=== PATIENT | male | born 1950 | race Caucasian/White ===

== ENCOUNTER 2023-07-29 11:45 | Outpatient (CLI) | payer MEDICARE | END 2023-07-29 11:46 | LOC: PET 11:45 | PROVIDERS: ATTEND Internal Medicine Hematology & Oncology | DX: C83.33 Diffuse large B-cell lymphoma, intra-abdominal lymph nodes (principal); R59.0 Localized enlarged lymph nodes; Z98.1 Arthrodesis status | CPT/HCPCS: 78815; A9552 ==

== ENCOUNTER 2023-08-14 18:00 | Inpatient (IN) | payer MEDICARE ==
[~2023-08-14 18:00] MED LIST: Iopamidol-370 76% 500 ML MDV (1 ML CHARGE) ONE
[2023-08-14] MEDS ORDERED: Ondansetron PF 4 MG/2 ML Vial ONE (18:56)
[2023-08-14 19:19] LABS: Hematocrit 28.7 % (42.0-52.0); Hemoglobin 9.3 g/dL (14.0-18.0); Mean Corpuscular HGB CONC 32.4 g/dL (32.0-36.0); Mean Corpuscular Volume 83.2 fl (78.0-98.0); Mean Platelet Volume 8.4 fL (7.4-10.4); Platelet Count 309 10x3/uL (130-400); RBC Distribution Width 14.9 % (11.5-14.5); Red Blood Cell (RBC) Count 3.45 mill/uL (4.70-6.10)
[2023-08-14 19:28] LABS: Prothrombin Time 13.3 sec (12.0-14.7)
[2023-08-14 19:29] LABS: PTT 25.2 sec (22.9-36.1)
[2023-08-14 19:37] LABS: Anisocytosis SLIGHT = 6-15 cells HPF (0-5); Band 10 % (5-11); Hypochromia SLIGHT = 6-15 cells HPF (0-5); Lymphocytes 6 % (21-51); Neutrophil 84 % (42-75); Ovalocytes SLIGHT = 2-5 cells HPF (0-1); Platelet Adequacy Comment Platelets Normal; Poikilocytosis SLIGHT = 6-15 cells HPF (0-5); Polychromasia SLIGHT = 2-3 cells HPF (0-2); Target Cells SLIGHT = 2-5 cells HPF (0-1)
[2023-08-14 19:43] LABS: ALT (SGPT) 9 U/L (8-55); AST (SGOT) 8 U/L (5-34); Albumin 3.2 g/dL (3.4-4.8); Alkaline Phosphatase 93 U/L (40-110); Anion Gap 12 mmol/L (10-20); BUN (Urea Nitrogen) 18 mg/dL (8.4-25.7); Bilirubin, Total 0.4 mg/dL (0.2-1.2); Calc. Creatinine Clearance 0 mL/min (70-130); Calcium 8.4 mg/dL (7.8-10.44); Carbon Dioxide 26 mmol/L (23-31); Chloride 105 mmol/L (98-107); Estimated GFR 97; Glucose 212 mg/dL (83-110); Potassium 3.2 mmol/L (3.5-5.1); Protein, Total 5.2 g/dL (5.8-8.1); Sodium 140 mmol/L (136-145)
[2023-08-14] MEDS ORDERED: Sodium Chloride 0.9% 100 ML ONE (20:22)
[2023-08-14] MEDS ORDERED: Cefepime 2 GM VIAL ONE (20:22)
[2023-08-14 21:20] LABS: Bacteria/HPF None Seen HPF (None Seen); Bilirubin Negative (Negative); Blood, Urine Negative (Negative); CAUTI Indications for Culture Fever or rigors; Clarity Clear (Clear); Glucose, Urine (Dipstick) >=1000 mg/dL (Negative); Ketone, Urine Negative (Negative); Leukocyte Negative Leu/uL (Negative); Nitrite Negative (Negative); Protein, Urine (Dipstick) Negative (Neg-Trace); RBC/HPF 0-3 HPF (0-3); Specific Gravity, Urine 1.014 (1.002-1.036); Squamous Epithelial None Seen HPF (0-3); Urobilinogen Normal mg/dL (Less than 2); WBC/HPF 0-3 HPF (0-3)
[2023-08-14 21:23] LABS: Urine Culture Reflex No No
[2023-08-14 21:54] LABS: Influenza A by NAA Not Detected (NotDetected); Influenza B by NAA Not Detected (NotDetected); SARS-CoV-2 NAA Rapid Test Not Detected (NotDetected)
[2023-08-14] MEDS ORDERED: HumaLOG 300 UNITS/3 ML VIAL SC PRN (23:25)
[2023-08-14] MEDS ORDERED: Acetaminophen 650 MG Suppository PR PRN (23:25)
[2023-08-14] MEDS ORDERED: Dextrose 50% Abboject 50 ML SYRINGE SLOW IVP PRN (23:25)
[2023-08-14] MEDS ORDERED: Glucagon 1 MG/ML KIT IM PRN (23:25)
[2023-08-14] MEDS ORDERED: Dextrose 5% in Water 1,000 ML IV PRN (23:25)
[2023-08-14] MEDS ORDERED: Morphine 4 MG/ML VIAL ONE (23:37)
[2023-08-15] MEDS: Vancomycin (BATCH) 2 GM in Premix 1 BAG IVPB SCH (01:18)
[2023-08-15] MEDS: Piperacillin/Tazobactam 3.375 GM in Sodium Chloride 0.9% 100 ML IVPB SCH ×2 (02:35→06:10)
[2023-08-15] MEDS: Sodium Chloride 0.9% 1,000 ML IV SCH (02:36)
[2023-08-15 03:30] LABS: Hematocrit 28.2 % (42.0-52.0); Mean Corpuscular HGB CONC 31.9 g/dL (32.0-36.0); Mean Corpuscular Hemoglobin 26.4 pg (27.0-31.0); Mean Corpuscular Volume 82.7 fL (78.0-98.0); Mean Platelet Volume 8.6 fL (7.4-10.4); Platelet Count 268 10x3/uL (130-400); RBC Distribution Width 14.7 % (11.5-14.5); Red Blood Cell (RBC) Count 3.41 mill/uL (4.70-6.10)
[2023-08-15 03:41] LABS: Anion Gap 12 mmol/L (10-20); BUN (Urea Nitrogen) 13 mg/dL (8.4-25.7); Calc. Creatinine Clearance 158 mL/min (70-130); Calcium 8.1 mg/dL (7.8-10.44); Carbon Dioxide 27 mmol/L (23-31); Chloride 105 mmol/L (98-107); Estimated GFR 103; Glucose 135 mg/dL (83-110); Sodium 141 mmol/L (136-145)
[2023-08-15 03:52] LABS: Band 5 % (5-11); Hypochromia SLIGHT = 6-15 cells HPF (0-5); Lymphocytes 2 % (21-51); Neutrophil 93 % (42-75); Platelet Adequacy Comment Platelets Normal; Smudge Cells 7.8 %
[2023-08-15 04:27] LABS: Critical Call Chemistry NUR.GEG@0427; Potassium 2.6 mmol/L (3.5-5.1)
[2023-08-15 05:16] LABS: Vancomycin, Random 20.4 ug/mL (See Comment)
[2023-08-15] MEDS: Potassium Chloride 20 MEQ TAB PO SCH (05:22)
[2023-08-15] MEDS: Potassium Chloride 40 MEQ in Premix 1 BAG IVPB SCH (05:22)
[2023-08-15 06:46] LABS: Magnesium 1.9 mg/dL (1.6-2.6)
[2023-08-15] MEDS: Enoxaparin 40 MG (0.4 mL) SYRINGE SC SCH (08:20)
[2023-08-15] MEDS ORDERED: Polyethylene Glycol 3350 17 GM Packet PO PRN (09:35)
[2023-08-15] MEDS: Vancomycin (BATCH) 1.25 GM in Premix 1 BAG IVPB SCH (09:36)
[2023-08-15] MEDS: Morphine 4 MG/ML VIAL SLOW IVP PRN (13:47)
[2023-08-15] MEDS: Ondansetron PF 4 MG/2 ML Vial IVP PRN (18:04)
[2023-08-15] MEDS: Docusate 100 MG CAP PO SCH (20:14)
[2023-08-15] MEDS: Senokot S 8.6-50 MG TAB PO SCH (20:14)
[2023-08-16 05:36] LABS: Hematocrit 29.3 % (42.0-52.0); Hemoglobin 9.4 g/dL (14.0-18.0); Mean Corpuscular HGB CONC 32.1 g/dL (32.0-36.0); Mean Corpuscular Hemoglobin 26.4 pg (27.0-31.0); Mean Corpuscular Volume 82.3 fL (78.0-98.0); Platelet Count 212 10x3/uL (130-400); RBC Distribution Width 14.6 % (11.5-14.5); Red Blood Cell (RBC) Count 3.56 mill/uL (4.70-6.10)
[2023-08-16 05:44] LABS: Vancomycin, Random 12.3 ug/mL (See Comment)
[2023-08-16 05:52] LABS: Anion Gap 10 mmol/L (10-20); BUN (Urea Nitrogen) 9 mg/dL (8.4-25.7); Calc. Creatinine Clearance 148 mL/min (70-130); Calcium 8.2 mg/dL (7.8-10.44); Carbon Dioxide 31 mmol/L (23-31); Chloride 103 mmol/L (98-107); Estimated GFR 101; Glucose 145 mg/dL (83-110); Magnesium 1.8 mg/dL (1.6-2.6); Potassium 4.1 mmol/L (3.5-5.1); Sodium 140 mmol/L (136-145)
[2023-08-16 06:09] LABS: Band 1 % (5-11); Lymphocytes 6 % (21-51); Neutrophil 93 % (42-75); Platelet Adequacy Comment Platelets Normal; RBC Morphology Within Normal Limits
[2023-08-16] MEDS: Allopurinol 300 MG TAB PO SCH (10:58)
[2023-08-16] MEDS: Venlafaxine XR 37.5 MG CAP PO SCH (10:58)
[2023-08-16] MEDS: Megestrol Acetate 40 MG TAB PO SCH (10:58)
[2023-08-16] MEDS: Ondansetron ODT 4 MG TAB PO PRN (15:08)
[2023-08-16] MEDS: Famotidine 20 MG TAB PO SCH (20:28)
[2023-08-17 05:38] LABS: Hematocrit 28.1 % (42.0-52.0); Hemoglobin 9.1 g/dL (14.0-18.0); Mean Corpuscular HGB CONC 32.4 g/dL (32.0-36.0); Mean Corpuscular Hemoglobin 25.9 pg (27.0-31.0); Mean Corpuscular Volume 80.1 fL (78.0-98.0); Mean Platelet Volume 8.8 fL (7.4-10.4); Platelet Count 150 10x3/uL (130-400); RBC Distribution Width 14.5 % (11.5-14.5); Red Blood Cell (RBC) Count 3.51 mill/uL (4.70-6.10)
[2023-08-17 05:55] LABS: Vancomycin, Random 12.8 ug/mL (See Comment)
[2023-08-17 05:56] LABS: Anion Gap 12 mmol/L (10-20); BUN (Urea Nitrogen) 7 mg/dL (8.4-25.7); Calc. Creatinine Clearance 181 mL/min (70-130); Calcium 7.7 mg/dL (7.8-10.44); Carbon Dioxide 28 mmol/L (23-31); Chloride 100 mmol/L (98-107); Estimated GFR 107; Glucose 135 mg/dL (83-110); Magnesium 1.6 mg/dL (1.6-2.6); Sodium 137 mmol/L (136-145)
[2023-08-17 06:05] LABS: Critical Call Chemistry NUR.GEG@0604; Potassium 2.5 mmol/L (3.5-5.1)
[2023-08-17 06:17] LABS: Band 14 % (5-11); Eosinophils 2 % (0-10); Lymphocytes 7 % (21-51); Monocytes 1 % (0-10); Neutrophil 76 % (42-75); Platelet Adequacy Comment Platelets Normal; RBC Morphology Within Normal Limits; Smudge Cells 15.8 %
[2023-08-17] MEDS ORDERED: Electrolyte Replacement Protocol 1 EACH FS SCH (06:30)
[2023-08-17] MEDS: Magnesium 2 GM/50 ML(in water) 2 GM in Premix 1 BAG IVPB SCH (07:09)
[2023-08-17] MEDS: Potassium Chloride 20 MEQ TAB PO SCH (08:31)
[2023-08-17] MEDS: Megestrol Acetate 800 MG/20 ML UDCUP PO SCH (08:32)
[2023-08-17] MEDS: Morphine 4 MG/ML VIAL SLOW IVP PRN (18:40)
[2023-08-17] MEDS: Vancomycin (BATCH) 1.5 GM in Premix 1 BAG IVPB SCH (20:31)
[2023-08-17] MEDS: Acetaminophen 325 MG TAB PO PRN (21:58)
[2023-08-18 05:59] LABS: Hematocrit 26.8 % (42.0-52.0); Hemoglobin 8.6 g/dL (14.0-18.0); Mean Corpuscular HGB CONC 32.1 g/dL (32.0-36.0); Mean Corpuscular Hemoglobin 25.7 pg (27.0-31.0); Mean Corpuscular Volume 80.2 fL (78.0-98.0); Mean Platelet Volume 9.3 fL (7.4-10.4); Platelet Count 151 10x3/uL (130-400); RBC Distribution Width 14.2 % (11.5-14.5); Red Blood Cell (RBC) Count 3.34 mill/uL (4.70-6.10)
[2023-08-18 06:10] LABS: Vancomycin, Random 15.1 ug/mL (See Comment)
[2023-08-18 06:14] LABS: Anion Gap 9 mmol/L (10-20); BUN (Urea Nitrogen) 6 mg/dL (8.4-25.7); Calc. Creatinine Clearance 161 mL/min (70-130); Calcium 7.9 mg/dL (7.8-10.44); Carbon Dioxide 30 mmol/L (23-31); Chloride 102 mmol/L (98-107); Estimated GFR 103; Glucose 154 mg/dL (83-110); Magnesium 1.8 mg/dL (1.6-2.6); Sodium 138 mmol/L (136-145)
[2023-08-18 06:24] LABS: Critical Call Chemistry NUR.JL10@0624; Potassium 2.5 mmol/L (3.5-5.1)
[2023-08-18 06:31] LABS: Band 10 % (5-11); Eosinophils 9 % (0-10); Large Platelets 1.9 % (0-5); Lymphocytes 15 % (21-51); Monocytes 4 % (0-10); Neutrophil 62 % (42-75); Platelet Adequacy Comment Platelets Normal; RBC Morphology Within Normal Limits; Smudge Cells 16.5 %
[2023-08-18] MEDS: Magnesium 2 GM/50 ML(in water) 2 GM in Premix 1 BAG IVPB SCH (08:24)
[2023-08-18] MEDS: Potassium Chloride 20 MEQ TAB PO SCH (08:27)
[2023-08-18] MEDS: guaiFENesin/Codeine 200 mg/20 mg 10 ml Cup PO PRN (10:14)
[2023-08-18] MEDS: Benzonatate 100 MG CAP PO SCH (15:45)
[2023-08-18] MEDS: HYDROcodone/Acetaminophen 10/325 mg Tablet PO PRN (16:44)
[2023-08-18] MEDS: Vancomycin (BATCH) 1.75 GM in Premix 1 BAG IVPB SCH (20:41)
[2023-08-19 04:56] LABS: Hemoglobin 9.1 g/dL (14.0-18.0); Mean Corpuscular HGB CONC 32.5 g/dL (32.0-36.0); Mean Corpuscular Hemoglobin 26.1 pg (27.0-31.0); Mean Corpuscular Volume 80.5 fL (78.0-98.0); Mean Platelet Volume 9.5 fL (7.4-10.4); Platelet Count 156 10x3/uL (130-400); RBC Distribution Width 14.2 % (11.5-14.5); Red Blood Cell (RBC) Count 3.48 mill/uL (4.70-6.10)
[2023-08-19 04:57] LABS: Vancomycin, Random 19.7 ug/mL (See Comment)
[2023-08-19 05:01] LABS: Anion Gap 10 mmol/L (10-20); BUN (Urea Nitrogen) 5 mg/dL (8.4-25.7); Calc. Creatinine Clearance 140 mL/min (70-130); Calcium 8.4 mg/dL (7.8-10.44); Carbon Dioxide 32 mmol/L (23-31); Chloride 100 mmol/L (98-107); Estimated GFR 99; Glucose 145 mg/dL (83-110); Potassium 3.4 mmol/L (3.5-5.1); Sodium 139 mmol/L (136-145)
[2023-08-19 05:42] LABS: Band 11 % (5-11); Eosinophils 10 % (0-10); Large Platelets 5.7 % (0-5); Lymphocytes 22 % (21-51); Monocytes 22 % (0-10); Neutrophil 31 % (42-75); Platelet Adequacy Comment Platelets Normal; Polychromasia SLIGHT = 2-3 cells HPF (0-2); RBC Morphology Within Normal Limits; Reactive Lymphocytes 2 % (0-10); Smudge Cells 30.7 %
[2023-08-19] MEDS: Potassium Chloride 20 MEQ TAB PO SCH ×3 (08:05→18:27)
[2023-08-20 05:58] LABS: #Basophils 0.09 10x3/uL (0.0-0.2); %Eosinophils 2.4 % (0.0-10.0); %Lymphocytes 8.8 % (21.0-51.0); %Monocytes 17.6 % (0.0-10.0); %Neutrophils 62.8 % (42.0-75.0); Hematocrit 29.2 % (42.0-52.0); Hemoglobin 9.5 g/dL (14.0-18.0); Mean Corpuscular Hemoglobin 26.1 pg (27.0-31.0); Mean Corpuscular Volume 79.1 fL (78.0-98.0); Mean Platelet Volume 9.7 fL (7.4-10.4); Platelet Count 159 10x3/uL (130-400); RBC Distribution Width 14.5 % (11.5-14.5); Red Blood Cell (RBC) Count 3.64 mill/uL (4.70-6.10)
[2023-08-20 06:03] LABS: Anion Gap 14 mmol/L (10-20); BUN (Urea Nitrogen) 5 mg/dL (8.4-25.7); Calc. Creatinine Clearance 148 mL/min (70-130); Calcium 8.6 mg/dL (7.8-10.44); Carbon Dioxide 29 mmol/L (23-31); Chloride 97 mmol/L (98-107); Estimated GFR 101; Glucose 138 mg/dL (83-110); Potassium 3.2 mmol/L (3.5-5.1); Sodium 137 mmol/L (136-145)
[2023-08-20 06:49] LABS: Band 28 % (5-11); Eosinophils 4 % (0-10); Large Platelets 6.4 % (0-5); Lymphocytes 7 % (21-51); Metamyelocyte 1 % (0-0); Microcytosis SLIGHT = 6-15 cells HPF (0-5); Monocytes 7 % (0-10); Neutrophil 50 % (42-75); Nucleated RBC (Manual Ct) 3 % (0); Platelet Adequacy Comment Platelets Normal; Polychromasia SLIGHT = 2-3 cells HPF (0-2)
[2023-08-20] MEDS: Potassium Chloride 20 MEQ TAB PO SCH (08:39)
[2023-08-20 14:16] VITALS: BMI 34.8
[2023-08-20 15:21] LABS: Bacteria/HPF None Seen HPF (None Seen); Bilirubin Negative (Negative); Blood, Urine Negative (Negative); CAUTI Indications for Culture Fever or rigors; Clarity Clear (Clear); Glucose, Urine (Dipstick) 50 mg/dL (Negative); Ketone, Urine 40 mg/dL (Negative); Leukocyte Negative Leu/uL (Negative); Nitrite Negative (Negative); Protein, Urine (Dipstick) 30 mg/dL (Neg-Trace); RBC/HPF 0-3 HPF (0-3); Specific Gravity, Urine 1.014 (1.002-1.036); Squamous Epithelial 0-3 HPF (0-3); Urobilinogen Normal mg/dL (Less than 2); WBC/HPF 0-3 HPF (0-3)
[2023-08-20 15:33] LABS: Urine Culture Reflex No No
[2023-08-20] MEDS: Nystatin Powder 15 GM BOT TOP PRN (20:55)
[2023-08-20] MEDS ORDERED: Melatonin 3 MG TAB PO PRN (21:10)
[2023-08-20] MEDS: Ketorolac Tromethamine 30 MG (1 mL) VIAL IVP SCH (21:31)
[2023-08-20] MEDS: Melatonin 3 MG TAB PO SCH (21:31)
[2023-08-21 06:17] LABS: Anion Gap 8 mmol/L (10-20); BUN (Urea Nitrogen) 8 mg/dL (8.4-25.7); Calc. Creatinine Clearance 136 mL/min (70-130); Calcium 8.6 mg/dL (7.8-10.44); Carbon Dioxide 33 mmol/L (23-31); Chloride 98 mmol/L (98-107); Estimated GFR 98; Glucose 156 mg/dL (83-110); Potassium 3.1 mmol/L (3.5-5.1); Sodium 136 mmol/L (136-145)
[2023-08-21 06:39] LABS: Hematocrit 28.6 % (42.0-52.0); Hemoglobin 9.3 g/dL (14.0-18.0); Mean Corpuscular HGB CONC 32.5 g/dL (32.0-36.0); Mean Corpuscular Hemoglobin 26.2 pg (27.0-31.0); Mean Corpuscular Volume 80.6 fL (78.0-98.0); Mean Platelet Volume 9.5 fL (7.4-10.4); Platelet Count 145 10x3/uL (130-400); RBC Distribution Width 14.9 % (11.5-14.5); Red Blood Cell (RBC) Count 3.55 mill/uL (4.70-6.10)
[2023-08-21 07:17] LABS: Band 24 % (5-11); Eosinophils 1 % (0-10); Lymphocytes 8 % (21-51); Monocytes 8 % (0-10); Neutrophil 59 % (42-75); Platelet Adequacy Comment Platelets Normal; RBC Morphology Within Normal Limits
[2023-08-21] MEDS: Potassium Chloride 20 MEQ TAB PO SCH (08:01)
[2023-08-21 09:22] VITALS: BP 152/76; TEMP 97.7
[2023-08-22 06:13] LABS: Adenovirus F 40-41 Not Detected (Not Detected); Astrovirus Not Detected (Not Detected); C. difficile toxin A+B Not Detected (Not Detected); Campylobacter by PCR Not Detected (Not Detected); Cryptosporidium Not Detected (Not Detected); Cyclospora cayetanensis Not Detected (Not Detected); Entamoeba histolytica Not Detected (Not Detected); Enteroaggregative E. coli Not Detected (Not Detected); Enteropathogenic E. coli Not Detected (Not Detected); Enterotoxigenic E. coli Not Detected (Not Detected); Giardia lamblia Not Detected (Not Detected); Norovirus GI-GII Not Detected (Not Detected); Plesiomonas shigelloides Not Detected (Not Detected); Rotavirus A Not Detected (Not Detected); Salmonella Not Detected (Not Detected); Sapovirus Not Detected (Not Detected); Shiga-toxin-producing E coli Not Detected (Not Detected); Shigella/Enteroinvasive E coli Not Detected (Not Detected); Vibrio Not Detected (Not Detected); Vibrio cholerae Not Detected (Not Detected); Yersinia enterocolitica Not Detected (Not Detected)
== END 2023-08-21 09:29 | DRG 872 ==
LOC: ERS 18:00 → T4-B 22:31
PROVIDERS: ADMIT Student in an Organized Health Care Education/Training Program; ATTEND Hospitalist
DX: A41.9 Sepsis, unspecified organism (principal); C83.30 Diffuse large B-cell lymphoma, unspecified site; J90 Pleural effusion, not elsewhere classified; J44.9 Chronic obstructive pulmonary disease, unspecified; E10.9 Type 1 diabetes mellitus without complications; I25.10 Atherosclerotic heart disease of native coronary artery without angina pectoris; Z96.653 Presence of artificial knee joint, bilateral; E87.6 Hypokalemia; D63.0 Anemia in neoplastic disease; L89.159 Pressure ulcer of sacral region, unspecified stage; R53.1 Weakness; K59.00 Constipation, unspecified; Z95.5 Presence of coronary angioplasty implant and graft; Z79.899 Other long term (current) drug therapy; Z98.890 Other specified postprocedural states; Z87.891 Personal history of nicotine dependence; Z79.4 Long term (current) use of insulin
CPT/HCPCS: 36415; 36416; 71045; 71275; 72157; 72158; 74177; 80048; 80053; 80202; 81001; 83605; 83630; 83735; 85025; 85610; 85730; 86140; 87040; 87086; 87507; 93005; 93010; 96374; 96375; J0692; J1642; J1650; J1885; J2270; J2405; J2543; J3370; J3475; J3480; J3490; J7050; Q0162; Q9967; S0179

== ENCOUNTER → 2023-10-13 | Outpatient (CLI) | payer MEDICARE | LOC: PET 11:45 | PROVIDERS: ATTEND Internal Medicine Hematology & Oncology | DX: C83.33 Diffuse large B-cell lymphoma, intra-abdominal lymph nodes (principal); R59.0 Localized enlarged lymph nodes | CPT/HCPCS: 78815; A9552 ==

== ENCOUNTER 2024-01-11 17:58 | Inpatient (IN) | payer MEDICARE ==
[2024-01-11 18:48] LABS: #Basophils 0.08 10x3/uL (0.0-0.2); %Basophils 1.2 % (0.0-1.0); %Eosinophils 4.1 % (0.0-10.0); %Lymphocytes 19.4 % (21.0-51.0); %Monocytes 13.3 % (0.0-10.0); %Neutrophils 61.4 % (42.0-75.0); Hematocrit 34.2 % (42.0-52.0); Hemoglobin 10.5 g/dL (14.0-18.0); Mean Corpuscular HGB CONC 30.7 g/dL (32.0-36.0); Mean Corpuscular Hemoglobin 25.8 pg (27.0-31.0); Mean Platelet Volume 8.3 fL (7.4-10.4); Platelet Count 143 10x3/uL (130-400); RBC Distribution Width 17.8 % (11.5-14.5); Red Blood Cell (RBC) Count 4.07 mill/uL (4.70-6.10)
[2024-01-11 18:50] LABS: Bacteria/HPF None Seen HPF (None Seen); Bilirubin Negative (Negative); Blood, Urine Negative (Negative); CAUTI Indications for Culture < 2yrs of age; Clarity Clear (Clear); Glucose, Urine (Dipstick) Normal (Negative); Ketone, Urine Negative (Negative); Leukocyte Negative Leu/uL (Negative); Nitrite Negative (Negative); Protein, Urine (Dipstick) Negative (Neg-Trace); RBC/HPF None Seen HPF (0-3); Specific Gravity, Urine 1.005 (1.002-1.036); Squamous Epithelial 0-3 HPF (0-3); Urobilinogen Normal mg/dL (Less than 2); WBC/HPF 0-3 HPF (0-3); pH, Urine 5.5 (5.0-9.0)
[2024-01-11 18:56] LABS: Urine Culture Reflex Yes Yes
[2024-01-11 19:13] LABS: ALT (SGPT) 15 U/L (8-55); AST (SGOT) 26 U/L (5-34); Albumin 3.3 g/dL (3.4-4.8); Alkaline Phosphatase 121 U/L (40-110); Anion Gap 15 mmol/L (10-20); BUN (Urea Nitrogen) 14 mg/dL (8.4-25.7); Bilirubin, Total 0.4 mg/dL (0.2-1.2); Calc. Creatinine Clearance 0 mL/min (70-130); Calcium 9.3 mg/dL (7.8-10.44); Carbon Dioxide 28 mmol/L (23-31); Chloride 101 mmol/L (98-107); Estimated GFR 91; Globulin 2.9 g/dL (2.4-3.5); Glucose 155 mg/dL (83-110); Magnesium 1.6 mg/dL (1.6-2.6); Protein, Total 6.2 g/dL (5.8-8.1); Sodium 140 mmol/L (136-145)
[2024-01-11] MEDS ORDERED: Morphine 4 MG/ML VIAL ONE (19:46)
[2024-01-11] MEDS ORDERED: Ondansetron PF 4 MG/2 ML Vial ONE (19:46)
[2024-01-11] MEDS ORDERED: Senokot S 8.6-50 MG TAB PO PRN (23:47)
[2024-01-12] MEDS: Sodium Chloride 0.9% 1,000 ML IV SCH
[2024-01-12] MEDS ORDERED: HYDROmorphone 0.5 MG/0.5 ML SYRINGE ONE (00:03)
[2024-01-12 05:11] LABS: #Basophils 0.04 10x3/uL (0.0-0.2); %Basophils 0.8 % (0.0-1.0); %Eosinophils 2.4 % (0.0-10.0); %Lymphocytes 19.7 % (21.0-51.0); %Monocytes 15.4 % (0.0-10.0); %Neutrophils 60.8 % (42.0-75.0); Hematocrit 31.9 % (42.0-52.0); Hemoglobin 9.9 g/dL (14.0-18.0); Mean Corpuscular Hemoglobin 26.5 pg (27.0-31.0); Mean Corpuscular Volume 85.3 fL (78.0-98.0); Mean Platelet Volume 8.5 fL (7.4-10.4); Platelet Count 125 10x3/uL (130-400); RBC Distribution Width 17.7 % (11.5-14.5); Red Blood Cell (RBC) Count 3.74 mill/uL (4.70-6.10)
[2024-01-12 05:26] VITALS: BMI 31.8
[2024-01-12 05:28] LABS: ALT (SGPT) 13 U/L (8-55); AST (SGOT) 21 U/L (5-34); Alkaline Phosphatase 101 U/L (40-110); Anion Gap 13 mmol/L (10-20); BUN (Urea Nitrogen) 12 mg/dL (8.4-25.7); Bilirubin, Total 0.4 mg/dL (0.2-1.2); Calc. Creatinine Clearance 130 mL/min (70-130); Calcium 8.9 mg/dL (7.8-10.44); Carbon Dioxide 28 mmol/L (23-31); Chloride 104 mmol/L (98-107); Estimated GFR 98; Globulin 2.5 g/dL (2.4-3.5); Glucose 147 mg/dL (83-110); Potassium 3.6 mmol/L (3.5-5.1); Protein, Total 5.5 g/dL (5.8-8.1); Sodium 141 mmol/L (136-145)
[2024-01-12] MEDS: Morphine 2 MG/ML VIAL SLOW IVP PRN (07:53)
[2024-01-12] MEDS: Famotidine/PF 20 mg/2ml Vial SLOW IVP SCH (07:54)
[2024-01-12] MEDS: Enoxaparin 40 MG (0.4 mL) SYRINGE SC SCH (07:56)
[2024-01-12] MEDS ORDERED: Transdermal Patch Removal TOP PRN (08:00)
[2024-01-12] MEDS: HYDROcodone/Acetaminophen 7.5/325 mg Tablet PO PRN (13:39)
[2024-01-12] MEDS ORDERED: Magnevist 469MG/ML 20 ML VIAL ONE (13:44)
[2024-01-12] MEDS ORDERED: Mometasone 200 MCG/Formoterol 5 MCG 120 PUFF INHALER INH PRN (16:11)
[2024-01-12] MEDS ORDERED: Melatonin 3 MG TAB PO PRN (16:11)
[2024-01-12] MEDS: metFORMIN XR 500 MG ER.TAB PO SCH (18:07)
[2024-01-12] MEDS: Bupropion 150 MG SR.TAB PO SCH (18:08)
[2024-01-12] MEDS ORDERED: Methocarbamol 500 MG TAB PO PRN (18:32)
[2024-01-12] MEDS ORDERED: HYDROcodone/Acetaminophen 10/325 mg Tablet PO PRN ×2 (18:33)
[2024-01-12] MEDS ORDERED: Lidocaine 4% Patch TD PRN ×2 (18:36→20:00)
[2024-01-12] MEDS: Dexamethasone 4 MG TAB PO SCH (18:44)
[2024-01-12] MEDS: Senokot S 8.6-50 MG TAB PO SCH (21:29)
[2024-01-12] MEDS: Gabapentin 300 MG CAP PO SCH (21:30)
[2024-01-12] MEDS: Carvedilol 6.25 MG TAB PO SCH (21:30)
[2024-01-13] MEDS: Bupropion 150 MG SR.TAB PO SCH (08:58)
[2024-01-13 09:08] VITALS: TEMP 97.4
[2024-01-13 14:24] VITALS: BP 131/76
== END 2024-01-13 14:22 | disposition home or self-care (01) | DRG 552 ==
LOC: ERS 17:58 → ERHOLD 23:47 → MSONC 01-12 07:25 → OBSVTOIN 01-12 15:07
PROVIDERS: ADMIT Hospitalist; ATTEND Internal Medicine
DX: M51.16 Intervertebral disc disorders with radiculopathy, lumbar region (principal); C83.30 Diffuse large B-cell lymphoma, unspecified site; Z79.4 Long term (current) use of insulin; Z79.899 Other long term (current) drug therapy; J44.9 Chronic obstructive pulmonary disease, unspecified; D64.9 Anemia, unspecified; Z92.21 Personal history of antineoplastic chemotherapy; Z96.653 Presence of artificial knee joint, bilateral
CPT/HCPCS: 36415; 72158; 74177; 80053; 81001; 83735; 85025; 87086; 96372; 96374; 96375; 96376; A9579; G0378; J1170; J1642; J1650; J2272; J2405; J3490; J7030; J8540; Q9967

== ENCOUNTER 2025-02-20 09:10 | Outpatient (CLI) | payer MEDICARE | END 2025-02-20 09:11 | disposition home or self-care (01) | LOC: SCSMRI 09:10 | PROVIDERS: ATTEND Nurse Practitioner Family | DX: M54.16 Radiculopathy, lumbar region (principal); M48.061 Spinal stenosis, lumbar region without neurogenic claudication; M48.07 Spinal stenosis, lumbosacral region | CPT/HCPCS: 72148 ==